=== PATIENT | female | born 1985 | race Caucasian/White ===

== ENCOUNTER 2019-12-26 09:12 | Outpatient (CLI) | payer MEDICARE, MEDICAID, SELFPAY | END 2019-12-26 09:13 | disposition home or self-care (01) | LOC: ANHAUDIO 09:14 | PROVIDERS: PCP Internal Medicine | DX: Z01.10 Encounter for examination of ears and hearing without abnormal findings (principal) | CPT/HCPCS: 99199 ==

== ENCOUNTER 2020-01-23 08:35 | Outpatient (CLI) | payer MEDICARE, MEDICAID, SELFPAY | END 2020-01-23 08:36 | disposition home or self-care (01) | PROVIDERS: PCP Internal Medicine; Visit Provider Internal Medicine | DX: Z01.10 Encounter for examination of ears and hearing without abnormal findings (principal) | CPT/HCPCS: 99199 ==

== ENCOUNTER 2022-05-31 10:49 | Outpatient (CLI) | payer MEDICARE, MEDICAID, SELFPAY | END 2022-05-31 10:50 | disposition home or self-care (01) | LOC: ANHBWCAUD 10:50 | PROVIDERS: PCP Internal Medicine; Visit Provider Internal Medicine | DX: H91.93 Unspecified hearing loss, bilateral (principal) | CPT/HCPCS: 99199 ==